=== PATIENT | male | born 1955 | race Caucasian/White ===

== ENCOUNTER 2019-05-16 13:05 | Emergency (ER) | payer OTHER ==
--- NOTE | 2019-05-16 13:39 | EDM.PDOC ---
ED HPI GENERAL MEDICAL PROBLEM - General Source of Information: Reports: Patient History Limitations: Reports: No Limitations - History of Present Illness Onset: Today Onset Time: 12:00 Duration: Constant Location: Reports: Neck Quality: Reports: Ache, Other (weakness) Severity: Moderate Improves with: Reports: None Worsens with: Reports: None Context: Reports: Other (fall) Associated Symptoms: Reports: Nausea/Vomiting Head Pain Score (Numeric/FACES): 4 <Naomi Biggs - Last Filed: 05/16/19 14:34> <Allison Newell - Last Filed: 05/16/19 15:26> - General Chief Complaint: Head Injury Stated Complaint: FELL AND HIT HEAD Time Seen by Provider: 05/16/19 13:34 - History of Present Illness INITIAL COMMENTS - FREE TEXT/NARRATIVE: Patient presents to the ED by private vehicle after falling on the ice and striking his head. The patient reports falling approximately 1/2 hour ago and recalling striking his head on the ground. He admits to pain in his neck. He reports nausea, dizziness and fogginess. He denies headache, light and sound sensitivity. He is on aspirin but denies use of other blood thinners. He does admit to a history of chronic neck pain but reports more weakness after this fall. He denies pain elsewhere. (Naomi Biggs) - Related Data Allergies Allergy/AdvReac Type Severity Reaction Status Date / Time Unable to Assess Allergy Unverified 05/16/19 13:15 Home Meds: Home Meds Acetaminophen/Caffeine [Excedrin Tension Headache Cplt] 2 each PO DAILY [History] Escitalopram Oxalate [Lexapro] 7 mg PO DAILY 05/16/19 [History] Pantoprazole Sodium [Protonix] 40 mg PO DAILY 05/16/19 [History] Past Medical History - Past Health History Medical/Surgical History: Denies Medical/Surgical History HEENT History: Reports: Impaired Vision Cardiovascular History: Reports: None Respiratory History: Reports: None Gastrointestinal History: Reports: None Genitourinary History: Reports: None Musculoskeletal History: Reports: Other (See Below) Other Musculoskeletal History: herniated disc in march Neurological History: Reports: None Psychiatric History: Reports: Depression Endocrine/Metabolic History: Reports: None Hematologic History: Reports: None Immunologic History: Reports: None Oncologic (Cancer) History: Reports: None Dermatologic History: Reports: None - Infectious Disease History Infectious Disease History: Reports: None - Past Surgical History Head Surgeries/Procedures: Reports: None <Naomi Biggs - Last Filed: 05/16/19 14:34> Social & Family History - Family History Family Medical History: Noncontributory - Tobacco Use Smoking Status *Q: Never Smoker Second Hand Smoke Exposure: No - Caffeine Use Caffeine Use: Reports: Coffee - Recreational Drug Use Recreational Drug Use: No <Naomi Biggs - Last Filed: 05/16/19 14:34> ED ROS GENERAL - Review of Systems Review Of Systems: See Below Constitutional: Denies: Fever, Chills HEENT: Denies: Vision Change Respiratory: Denies: Shortness of Breath, Cough Cardiovascular: Denies: Chest Pain, Palpitations Musculoskeletal: Reports: Neck Pain. Denies: Back Pain, Other (denies hip pain) Skin: Reports: Wound (to scalp) Neurological: Reports: Dizziness. Denies: Confusion, Headache, Numbness, Tingling Psychiatric: Reports: Depression <Naomi Biggs - Last Filed: 05/16/19 14:34> ED EXAM, HEAD INJURY - Physical Exam Exam: See Below Exam Limited By: No Limitations General Appearance: Alert, No Apparent Distress Head: Scalp Lacerations (1.3 cm laceration to posterior scalp), Scalp Tenderness , Active Bleeding. No: Scalp Swelling, Scalp Ecchymosis Nexus Criteria: Posterior, Midline Cervical Tenderness. 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 No: Motor Weakness, Sensory Deficit - [place] Coma Score Best Eye Response (Disha): (4) Open Spontaneously Best Verbal Response (Disha): (5) Oriented Best Motor Response ([place]): (6) Obeys Commands [place] Total: 15 <Naomi Biggs - Last Filed: 05/16/19 14:34> - Physical Exam Head: Normocephalic. No: Atraumatic Neurologic: Other (GCS15) Skin: Normal Color <Allison Newell - Last Filed: 05/16/19 15:26> Course <MaiagiuseppeNaomi - Last Filed: 05/16/19 14:34> <Allison Newell - Last Filed: 05/16/19 15:26> - Vital Signs Last Recorded V/S: Last Vital Signs Temp 97.6 F 05/16/19 13:16 Pulse 60 05/16/19 13:16 Resp 14 05/16/19 13:16 BP 174/93 H 05/16/19 13:16 Pulse Ox 100 05/16/19 13:16 - Radiology Interpretation Free Text/Narrative:: CT cervical spine reveals chronic multilevel disc disease and arthritis. No acute cervical fracture or dislocation. CT head reveals no sign of skull fracture, closed head injury, intracranial mass or hydrocephalus. No acute intracranial bleed. Chronic microvascular ischemic changes. (Naomi Biggs) - Re-Assessments/Exams Free Text/Narrative Re-Assessment/Exam: 05/16/19 13:52 C-collar in place prior to leaving for CT (Naomi Biggs) 1435 C collar removed I have examined the patient. I have discussed findings and treatment plan with the PA Student. I agree with the assessment and plan in the PA Students note 05/16/19 15:22 (Allison Newell) Departure - Departure Condition: Good - Discharge Information *PRESCRIPTION DRUG MONITORING PROGRAM REVIEWED*: Not Applicable *COPY OF PRESCRIPTION DRUG MONITORING REPORT IN PATIENT CONSTNAZA: Not Applicable <Naomi Biggs - Last Filed: 05/16/19 14:34> - Departure Time of Disposition: 14:40 <Allison Newell - Last Filed: 05/16/19 15:26> - Departure Disposition: Home, Self-Care 01 Clinical Impression: Scalp laceration Fall Qualifiers: Encounter type: initial encounter Qualified Code(s): W19.XXXA - Unspecified fall, initial encounter - Discharge Information Instructions: Concussion, Adult, [id number], Head Injury, Adult, [id number] Referrals: PCP,Unobtain [Primary Care Provider] - Forms: ED Department Discharge Additional Instructions: Tylenol every 4 hours as needed light activity, advance as tolerated follow up as needed Monitor for head injury / concussion type symptoms. follow up if symptoms worsening Sepsis Event Note - Evaluation Sepsis Screening Result: No Definite Risk - Focused Exam Date Exam was Performed: 05/16/19 Time Exam was Performed: 14:34 <Naomi Biggs - Last Filed: 05/16/19 14:34> - Focused Exam Date Exam was Performed: 05/16/19 Time Exam was Performed: 15:24 <Allison Newell - Last Filed: 05/16/19 15:26> - Focused Exam Vital Signs: Vital Signs Temp Pulse Resp BP Pulse Ox 05/16/19 13:16 97.6 F 60 14 174/93 H 100
--- NOTE | 2019-05-16 14:28 | CT ---
EXAMINATION: Cervical Spine wo Cont SEX: Male AGE: 64 years CLINICAL HISTORY: 64-year-old male injured when he slipped on ice and hit head/neck (feels weak). Scan technique: Volume acquisition of data emergency unenhanced CT scan of the cervical spine obtained with patient lying supine on the Siemens multislice scanner [place], [place]. All data archived in the PACS system for storage, reformatting axial/sagittal/coronal planes and study. Interpretation: 1. No sign of basal skull fracture. Symmetric clear pneumatization of the mastoid sinuses. 2. Normal bone mineral density for age and gender. No pathologic skeletal lesions. 3. Signs of chronic multilevel mid and lower cervical disc disease i.e. interspace narrowing and plate sclerosis and hypertrophic marginal/uncinate spur formation C4-5 C5-6 C6-7 levels. (Mild reactive sclerosis atlantoaxial joint). 4. No prevertebral soft tissue swelling, cervical fracture, spondylolisthesis or jump locked facet. 5. No cervical rib anomalies or first rib fracture. Lung apices clear. Conclusion: Chronic multilevel disc disease. Arthritis. No acute cervical fracture or dislocation.
--- NOTE | 2019-05-16 14:34 | CT ---
EXAMINATION: Head wo Cont SEX: Male AGE: 64 years CLINICAL HISTORY: 64-year-old male injured in fall i.e. slipped on ice hit head/neck (feels weak). "Multi level cervical disc disease and arthritis of the spine". Scan technique: Volume acquisition of data emergency unenhanced CT scan of the head and brain obtained with patient lying supine on the Siemens multi slice scanner [place], [place]. All data archived in the PACS system for storage, reformatting axial/sagittal/coronal planes and study (bone/brain windows). Interpretation: 1. Uniformly thick bony calvarium without sign of underlying or contrecoup brain contusion. 2. No skull fractures. Symmetric clear pneumatization of the paranasal and mastoid sinuses. 3. Symmetric cooper-white matter with some scattered microvascular ischemic change throughout both hemispheres. 4. No supratentorial or posterior fossa mass lesion. No hydrocephalus. 5. No sign of acute intracerebral/intraventricular/subarachnoid bleed. 6. Cerebellum and brainstem unremarkable. Conclusion: No sign of skull fracture, closed head injury, intracranial mass or hydrocephalus. No acute intracranial bleed. Chronic microvascular ischemic changes.
== END 2019-05-16 14:46 | disposition home or self-care (01) ==
LOC: DL.ED 13:05
DX: S01.01XA Laceration without foreign body of scalp, initial encounter (principal); F32.9 Major depressive disorder, single episode, unspecified; Z79.899 Other long term (current) drug therapy; W19.XXXA Unspecified fall, initial encounter
CPT/HCPCS: 70450; 72125; 99283-25

== ENCOUNTER 2020-04-03 21:02 | Emergency (ER) | payer MEDICARE, OTHER ==
--- NOTE | 2020-04-03 21:44 | EDM.PDOC ---
ED HPI GENERAL MEDICAL PROBLEM - General Chief Complaint: Cardiovascular Problem Stated Complaint: BLOOD PRESSURE HIGH Time Seen by Provider: 04/03/20 21:25 Source of Information: Reports: Patient History Limitations: Reports: No Limitations - History of Present Illness INITIAL COMMENTS - FREE TEXT/NARRATIVE: This 65 yo male patient reports to the ED due to an elevated blood pressure this evening. The patient reports he has noticed increased blood pressures, flushing of his face and cool hands since January. The patient also reports his anxiety medications were changed in January. The patient reports he has been taking his blood pressures since January and noticed increased blood pressures. The patient reports he was recently given a prescription for Lorazepam for his anxiety. The patient reports he took a dose of Lorazepam 30 minutes prior to his arrival in the ED. 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) - Related Data Allergies Allergy/AdvReac Type Severity Reaction Status Date / Time Unable to Assess Allergy Unverified 05/16/19 13:15 Home Meds: Home Meds Acetaminophen/Caffeine [Excedrin Tension Headache Cplt] 2 each PO DAILY 05/16/19 [History] Pantoprazole Sodium [Protonix] 40 mg PO DAILY 05/16/19 [History] Citalopram Hydrobromide [Celexa] 10 mg PO DAILY 04/03/20 [History] LORazepam [Lorazepam] 0.5 mg PO DAILY PRN 04/03/20 [History] Past Medical History - Past Health History Medical/Surgical History: Denies Medical/Surgical History HEENT History: Reports: Impaired Vision Cardiovascular History: Reports: None Respiratory History: Reports: None Gastrointestinal History: Reports: None Genitourinary History: Reports: None Musculoskeletal History: Reports: Other (See Below) Other Musculoskeletal History: herniated disc in march Neurological History: Reports: None Psychiatric History: Reports: Anxiety, Depression Endocrine/Metabolic History: Reports: None Hematologic History: Reports: None Immunologic History: Reports: None Oncologic (Cancer) History: Reports: None Dermatologic History: Reports: None - Infectious Disease History Infectious Disease History: Reports: None - Past Surgical History Head Surgeries/Procedures: Reports: None Social & Family History - Family History Family Medical History: No Pertinent Family History - Tobacco Use Tobacco Use Status *Q: Never Tobacco User Second Hand Smoke Exposure: No - Caffeine Use Caffeine Use: Reports: Coffee - Recreational Drug Use Recreational Drug Use: No ED ROS GENERAL - Review of Systems Review Of Systems: Comprehensive ROS is negative, except as noted in HPI. ED EXAM, GENERAL - Physical Exam Exam: See Below Exam Limited By: No Limitations General Appearance: Alert, WD/WN, Anxious, Mild Distress, Thin Eye Exam: Bilateral Eye: EOMI, Normal Inspection, PERRL Ears: Normal External Exam, Normal Canal, Hearing Grossly Normal, Normal TMs Nose: Normal Inspection, Normal Mucosa, No Blood Throat/Mouth: Normal Inspection, Normal Lips, Normal Teeth, Normal Gums, Normal Oropharynx, Normal Voice, No Airway Compromise Head: Atraumatic, Normocephalic Neck: Normal Inspection, Supple, Non-Tender, Full Range of Motion Respiratory/Chest: No Respiratory Distress, Lungs Clear, Normal Breath Sounds, No Accessory Muscle Use, Chest Non-Tender Cardiovascular: Normal Peripheral Pulses, Regular Rate, Rhythm, No Edema, No Gallop, No JVD, No Murmur, No Rub GI/Abdominal: Normal Bowel Sounds, Soft, Non-Tender, No Organomegaly, No Distention, No Abnormal Bruit, No Mass (Male) Exam: Deferred Rectal (Males) Exam: Deferred Back Exam: Normal Inspection, Full Range of Motion, NT Extremities: Normal Inspection, Normal Range of Motion, Non-Tender, Normal Capillary Refill, No Pedal Edema Neurological: Alert, Oriented, CN II-XII Intact, Normal Cognition, Normal Gait, Normal Reflexes, No Motor/Sensory Deficits Psychiatric: Anxious Skin Exam: Warm, Dry, Intact, Normal Color, No Rash Lymphatic: No Adenopathy Course - Vital Signs Last Recorded V/S: Last Vital Signs Temp 37.2 C 04/03/20 21:05 Pulse 94 04/03/20 21:05 Resp 18 04/03/20 21:05 BP 187/94 H 04/03/20 21:15 Pulse Ox 100 04/03/20 21:05 - Orders/Labs/Meds Orders: Active Orders 24 hr Category Date Time Status EKG Documentation Completion [RC] STAT Care 04/03/20 21:16 Ordered Labs: Laboratory Tests 04/03/20 04/03/20 Range/Units 21:20 21:20 WBC 8.9 (5.0-10.0) 10^3/uL RBC 4.17 L (4.6-6.2) 10^6/uL Hgb 12.6 L (14.0-18.0) g/dL Hct 37.4 L (40.0-54.0) % MCV 89.7 (80-100) fL MCH 30.2 (27.0-34.0) pg MCHC 33.7 (33.0-35.0) g/dL Plt Count 213 (150-450) 10^3/uL Neut % (Auto) 83.2 H (42.2-75.2) % Lymph % (Auto) 9.7 L (20.5-50.1) % [place] % (Auto) 6.9 (2-8) % Eos % (Auto) 0.0 L (1.0-3.0) % Baso % (Auto) 0.2 (0.0-1.0) % Sodium 138 (136-145) mmol/L Potassium 3.8 (3.5-5.1) mmol/L Chloride 103 (98-107) mmol/L Carbon Dioxide 28 (21-32) mmol/L Anion Gap 10.8 (7-13) mEq/L BUN 18 (7-18) mg/dL Creatinine 0.75 (0.70-1.30) mg/dL Est Cr Clr Drug Dosing 90.75 mL/min Estimated GFR (MDRD) > 60 BUN/Creatinine Ratio 24.0 (No establ ref range) Glucose 111 H (74-99) mg/dL Calcium 9.0 (8.5-10.1) mg/dL Total Bilirubin 0.6 (0.2-1.0) mg/dL AST 23 (15-37) U/L ALT 29 (16-63) U/L Alkaline Phosphatase 69 (46-116) U/L Troponin I < 0.017 (0.000-0.056) ng/mL Total Protein 7.1 (6.4-8.2) g/dL Albumin 4.1 (3.4-5.0) g/dL Globulin 3.0 Albumin/Globulin Ratio 1.4 Departure - Departure Time of Disposition: 21:56 Disposition: Home, Self-Care 01 Condition: Fair Clinical Impression: Anxiety about health Instructions: Hypertension, Adult, [id number] Forms: ED Department Discharge Care Plan Goals: The patient was advised of the examination, lab and EKG results during the visit. The patient was encouraged to continue to monitor his symptoms. The patient was encouraged to take his blood pressure 3 times per day and document the results. The patient should contact his primary care facility for continued evaluation and further management. If the patient has any additional symptoms or concerns, the patient should either return to the emergency department or visit his primary care facility. Sepsis Event Note (ED) - Evaluation Sepsis Screening Result: No Definite Risk - Focused Exam Vital Signs: Vital Signs Temp Pulse Resp BP Pulse Ox 04/03/20 21:15 187/94 H 04/03/20 21:05 37.2 C 94 18 203/101 H 100 - My Orders Last 24 Hours: My Active Orders 04/03/20 21:16 EKG Documentation Completion [RC] STAT - Assessment/Plan Last 24 Hours: My Active Orders 04/03/20 21:16 EKG Documentation Completion [RC] STAT
[2020-04-03 21:47] LABS: ANION GAP 10.8 mEq/L (7-13); CHLORIDE,CL 103 mmol/L (98-107); SODIUM,NA 138 mmol/L (136-145)
== END 2020-04-03 22:02 | disposition home or self-care (01) ==
LOC: DL.ED 21:02
DX: F41.9 Anxiety disorder, unspecified (principal); Z79.899 Other long term (current) drug therapy
CPT/HCPCS: 36415; 80053; 84484; 85025; 93005; 99283; 99283-25

== ENCOUNTER 2020-08-02 09:02 | Emergency (ER) | payer MEDICARE, OTHER ==
--- NOTE | 2020-08-02 09:09 | EDM.PDOC ---
ED HPI GENERAL MEDICAL PROBLEM - General Chief Complaint: Genitourinary Problem Stated Complaint: UTI [id number] Time Seen by Provider: 08/02/20 09:06 Source of Information: Reports: Patient, Old Records, RN, RN Notes Reviewed History Limitations: Reports: No Limitations - History of Present Illness INITIAL COMMENTS - FREE TEXT/NARRATIVE: Pt presents to ER with c/o "UTI". Onset 1-2 days ago. Pt reports pain/burning with urination. Admits to nausea, chills, and low back pain. Denies fever, or flank pain. Onset: Gradual Duration: Constant Location: Reports: Other (Urinary) Severity: Moderate Improves with: Reports: None Associated Symptoms: Reports: No Other Symptoms headache Pain Score (Numeric/FACES): 5 - Related Data Allergies Allergy/AdvReac Type Severity Reaction Status Date / Time anti-anxiety medications Allergy Other Uncoded 08/02/20 09:24 Home Meds: Home Meds Acetaminophen/Caffeine [Excedrin Tension Headache Cplt] 2 each PO DAILY 05/16/19 [History] Pantoprazole Sodium [Protonix] 40 mg PO DAILY 05/16/19 [History] LORazepam [Lorazepam] 0.5 mg PO DAILY PRN 04/03/20 [History] Escitalopram Oxalate 5 mg PO DAILY 08/02/20 [History] Metoprolol Succinate 25 mg PO DAILY 08/02/20 [History] Past Medical History - Past Health History Medical/Surgical History: Denies Medical/Surgical History HEENT History: Reports: Impaired Vision Cardiovascular History: Reports: None Respiratory History: Reports: None Gastrointestinal History: Reports: None Genitourinary History: Reports: None Musculoskeletal History: Reports: Other (See Below) Other Musculoskeletal History: herniated disc in march Neurological History: Reports: None Psychiatric History: Reports: Anxiety, Depression Endocrine/Metabolic History: Reports: None Hematologic History: Reports: None Immunologic History: Reports: None Oncologic (Cancer) History: Reports: None Dermatologic History: Reports: None - Infectious Disease History Infectious Disease History: Reports: None - Past Surgical History Head Surgeries/Procedures: Reports: None Social & Family History - Family History Family Medical History: No Pertinent Family History - Caffeine Use Caffeine Use: Reports: Coffee ED ROS GENERAL - Review of Systems Review Of Systems: Comprehensive ROS is negative, except as noted in HPI. ED EXAM, RENAL/ - Physical Exam Exam: See Below Exam Limited By: No Limitations General Appearance: Alert, WD/WN, No Apparent Distress Throat/Mouth: Normal Voice, No Airway Compromise Head: Atraumatic, Normocephalic Respiratory/Chest: No Respiratory Distress Cardiovascular: Regular Rate, Rhythm GI/Abdominal: Normal Bowel Sounds, Soft, Non-Tender, No Organomegaly, No Distention, No Abnormal Bruit, No Mass (Male) Exam: Deferred Rectal (Males) Exam: Deferred Back Exam: Normal Inspection, Full Range of Motion. No: CVA Tenderness (L), CVA Tenderness (R), Vertebral Tenderness Neurological: Alert, Oriented, No Motor/Sensory Deficits Psychiatric: Normal Mood Skin Exam: Warm, Dry, Intact, Normal Color, No Rash Course - Vital Signs Last Recorded V/S: Last Vital Signs Temp 98.9 F 08/02/20 09:16 Pulse 80 08/02/20 09:16 Resp 16 08/02/20 09:16 BP 146/80 H 08/02/20 09:16 Pulse Ox 100 08/02/20 09:16 - Orders/Labs/Meds Orders: Active Orders 24 hr Category Date Time Status CULTURE URINE [RM] Stat Lab 08/02/20 09:05 Received UA W/MICROSCOPIC [URIN] Stat Lab 08/02/20 09:05 Results Ondansetron [Zofran ODT] Med 08/02/20 09:26 Once 4 mg PO ONETIME ONE cefTRIAXone 1 GM,Lidocaine 1% 2.1 ML Med 08/02/20 09:27 Ordered cefTRIAXone [Rocephin] 1 gm Lidocaine 1% [Xylocaine-MPF 1%] 2.1 ml IM ONETIME Medication Orders Ceftriaxone Sodium 1 gm/ (Lidocaine HCl 2.1 ml) 0 gm IM ONETIME ONE Stop: 08/02/20 09:28 Ondansetron HCl (Ondansetron 4 Mg Tab.Dis) 4 mg PO ONETIME ONE Stop: 08/02/20 09:27 Labs: Laboratory Tests 08/02/20 Range/Units 09:05 Urine Color Dark yellow (YELLOW) Urine Appearance Cloudy (CLEAR) Urine pH 7.0 (5.0-9.0) Ur Specific [place] 1.020 (1.005-1.030) Urine Protein 100 H (NEGATIVE) Urine Glucose (UA) Negative (NEGATIVE) Urine Ketones Trace H (NEGATIVE) Urine Occult Blood Trace-intact H (NEGATIVE) Urine Nitrite Positive H (NEGATIVE) Urine Bilirubin Negative (NEGATIVE) Urine Urobilinogen 0.2 (0.2-1.0) mg/dL Ur Leukocyte Esterase Large H (NEGATIVE) Meds: Medications Generic Name Dose Route Start Last Admin Trade Name Srinivasq PRN Reason Stop Dose Admin Ceftriaxone Sodium 1 gm/ 0 gm 08/02/20 09:27 Lidocaine HCl 2.1 ml IM 08/02/20 09:28 ONETIME ONE Ondansetron HCl 4 mg 08/02/20 09:26 Ondansetron 4 Mg Tab.Dis PO 08/02/20 09:27 ONETIME ONE Departure - Departure Time of Disposition: 09:29 Disposition: Home, Self-Care 01 Condition: Good Clinical Impression: UTI, Urinary tract infectious disease - Discharge Information *PRESCRIPTION DRUG MONITORING PROGRAM REVIEWED*: Not Applicable *COPY OF PRESCRIPTION DRUG MONITORING REPORT IN PATIENT CONSTANZA: Not Applicable Instructions: Urinary Tract Infection, Adult Forms: ED Department Discharge Additional Instructions: Rx: Cipro 500mg Rx: Zofran 4mg Drink plenty of water. Follow up in clinic in 7 to 10 days for urine recheck. Sepsis Event Note (ED) - Focused Exam Vital Signs: Vital Signs Temp Pulse Resp BP Pulse Ox 08/02/20 09:16 98.9 F 80 16 146/80 H 100 - My Orders Last 24 Hours: My Active Orders 08/02/20 09:05 CULTURE URINE [RM] Stat UA W/MICROSCOPIC [URIN] Stat 08/02/20 09:26 Ondansetron [Zofran ODT] 4 mg PO ONETIME ONE 08/02/20 09:27 cefTRIAXone 1 GM,Lidocaine 1% 2.1 ML cefTRIAXone [Rocephin] 1 gm Lidocaine 1% [Xylocaine-MPF 1%] 2.1 ml IM ONETIME - Assessment/Plan Last 24 Hours: My Active Orders 08/02/20 09:05 CULTURE URINE [RM] Stat UA W/MICROSCOPIC [URIN] Stat 08/02/20 09:26 Ondansetron [Zofran ODT] 4 mg PO ONETIME ONE 08/02/20 09:27 cefTRIAXone 1 GM,Lidocaine 1% 2.1 ML cefTRIAXone [Rocephin] 1 gm Lidocaine 1% [Xylocaine-MPF 1%] 2.1 ml IM ONETIME
[2020-08-02] MEDS ORDERED: Ondansetron 4 MG Tab.DIS PO ONE (09:26)
[2020-08-02] MEDS ORDERED: cefTRIAXone 1 GM, Lidocaine 1% 2.1 ML IM ONE ×2 (09:27)
== END 2020-08-02 09:47 | disposition home or self-care (01) ==
LOC: DL.ED 09:02
DX: N39.0 Urinary tract infection, site not specified (principal); Z88.8 Allergy status to other drugs, medicaments and biological substances; Z79.899 Other long term (current) drug therapy
CPT/HCPCS: 81001; 87086; 87088; 87186; 96372; 99283; A9270-GY; J0696

== ENCOUNTER 2020-09-13 19:58 | Emergency (ER) | payer MEDICARE, OTHER ==
--- NOTE | 2020-09-13 23:31 | EDM.PDOC ---
ED HPI GENERAL MEDICAL PROBLEM - General Chief Complaint: Bite:Animal, Insect Stated Complaint: LEFT HAND, KNUCKLES 1 & 2. BIT BY CATS Time Seen by Provider: 09/13/20 23:20 Source of Information: Reports: Patient, RN History Limitations: Reports: No Limitations - History of Present Illness INITIAL COMMENTS - FREE TEXT/NARRATIVE: 65 year old male who presents to the ER one hour after being bitten by his cat twice. He states he took the cat away from a mint plant he was destroying and the cat bite him twice. No bleeding noted. Cat is uptodate on vaccination. Patient uptodate on tetanus. Patient reports a similare case of a cat bit about year ago and was treated for cellulitis. He denies any symptoms at this time. Left Neck Pain Score (Numeric/FACES): 4 - Related Data Allergies Allergy/AdvReac Type Severity Reaction Status Date / Time anti-anxiety medications Allergy Other Uncoded 09/13/20 22:04 Home Meds: Home Meds Acetaminophen/Caffeine [Excedrin Tension Headache Cplt] 2 each PO DAILY 05/16/19 [History] Pantoprazole Sodium [Protonix] 40 mg PO DAILY 05/16/19 [History] LORazepam [Lorazepam] 0.5 mg PO DAILY PRN 04/03/20 [History] Escitalopram Oxalate 5 mg PO DAILY 08/02/20 [History] Metoprolol Succinate 25 mg PO DAILY 08/02/20 [History] Past Medical History - Past Health History Medical/Surgical History: Denies Medical/Surgical History HEENT History: Reports: Impaired Vision Cardiovascular History: Reports: None Respiratory History: Reports: None Gastrointestinal History: Reports: None Genitourinary History: Reports: None Musculoskeletal History: Reports: Other (See Below) Other Musculoskeletal History: herniated disc in march Neurological History: Reports: None Psychiatric History: Reports: Anxiety, Depression Endocrine/Metabolic History: Reports: None Hematologic History: Reports: None Immunologic History: Reports: None Oncologic (Cancer) History: Reports: None Dermatologic History: Reports: None - Infectious Disease History Infectious Disease History: Reports: None - Past Surgical History Head Surgeries/Procedures: Reports: None Social & Family History - Family History Family Medical History: No Pertinent Family History - Tobacco Use Tobacco Use Status *Q: Never Tobacco User - Caffeine Use Caffeine Use: Reports: None - Recreational Drug Use Recreational Drug Use: No ED ROS GENERAL - Review of Systems Review Of Systems: Comprehensive ROS is negative, except as noted in HPI. ED EXAM, ANIMAL BITE - Physical Exam Exam: See Below Exam Limited By: No Limitations General Appearance: Alert, No Apparent Distress Respiratory/Chest: No Respiratory Distress, Lungs Clear, Normal Breath Sounds, No Accessory Muscle Use, Chest Non-Tender Cardiovascular: Normal Peripheral Pulses, Regular Rate, Rhythm, No Edema, No Gallop, No JVD, No Murmur, No Rub Peripheral Pulses: 3+: Radial (L) Extremities: Normal Capillary Refill, Other (tow puncture henrandez noted ontop of his left forarm with no bleeding.) Neurological: Alert, Oriented Psychiatric: Normal Affect, Normal Mood Skin Exam: Normal Color Lymphatic: No Adenopathy Course - Vital Signs Last Recorded V/S: Last Vital Signs Temp 97.6 F 09/13/20 22:02 Pulse 60 09/13/20 22:02 Resp 16 09/13/20 22:02 BP 189/94 H 09/13/20 22:02 Pulse Ox 100 09/13/20 22:02 - Re-Assessments/Exams Free Text/Narrative Re-Assessment/Exam: Reviewed exam findings with patient. Initiated on Augmentin twice daily x5 days. Patient to keep bite hernandez area clean and dry. Signs or symptoms of infection reviewed with patient. Encouraged to follow-up with PCP in the clinic. Departure - Departure Time of Disposition: 23:31 Disposition: Home, Self-Care 01 Condition: Good Clinical Impression: Cat bite of hand Qualifiers: Encounter type: initial encounter Laterality: left Qualified Code(s): S61.452A - Open bite of left hand, initial encounter - Discharge Information Instructions: Animal Bite, Adult, [id number] Forms: ED Department Discharge Additional Instructions: Encouraged patient to keep bite area clean. Take antibiotics as prescribed and follow up with PCP. OTC analgesics recommended for relief. Sepsis Event Note (ED) - Evaluation Sepsis Screening Result: No Definite Risk
== END 2020-09-13 23:47 | disposition home or self-care (01) ==
LOC: DL.ED 19:58
DX: S61.452A Open bite of left hand, initial encounter (principal); W55.01XA Bitten by cat, initial encounter
CPT/HCPCS: 99283

== ENCOUNTER 2020-12-15 05:46 | Day surgery (SDC) | payer MEDICARE, OTHER ==
[~2020-12-15 05:46] MED LIST: Midazolam 1 MG/ML 2 ML SDV ONE; fentaNYL 100 MCG/2 ML SDV ONE
[2020-12-15] MEDS ORDERED: Midazolam 1 MG/ML 2 ML SDV IV ONE ×3 (05:47→07:16)
[2020-12-15] MEDS ORDERED: fentaNYL 100 MCG/2 ML SDV IV ONE ×3 (05:47→07:15)
[2020-12-15] MEDS ORDERED: Dextrose 5%-0.45% NaCl 1,000 ML IV SCH (06:05)
--- NOTE | 2020-12-15 08:09 | OR ---
DATE: 12/15/2020 PROCEDURES: Esophagogastroduodenoscopy and multiple pinch biopsies. INSTRUMENT USED: [id number]-HQ190 Olympus video panendoscope. PREMEDICATIONS: No oral or topical anesthesia used. Fentanyl 100 mcg intravenous, Versed 2 mg intravenous, nasal O2 cannula. The procedure was done under pulse oximetry, BP recording, and residential monitor. INDICATION: The patient with unexplained iron-deficiency anemia. Esophagogastroduodenoscopy is performed for detection of any active erosive lesions, Dhaliwal esophagus and/or malignancy also under consideration, H pylori status to be determined, small bowel biopsies to be obtained for celiac disease if indicated, endoscopic hemostasis therapy if needed. PROCEDURE IN DETAIL: The scope was passed with ease. Adequate visualization of the esophagus was made from proximal to distal areas. No upper esophageal lesions identified. No uphill or downhill esophageal varices noted. No evidence of erosive esophagitis by Hull criteria. No esophageal polyp or tumor mass identified. Z-line was seen at around 40 cm distal to the oral verge. No proximal gastric varices noted. Gastric fundus examination by retroflexion showed diminutive benign-appearing polyp. No gastric ulcer, malignant mass, or vascular ectasia identified. Duodenal bulb showed no ulcer. Visualized second part of the duodenum was unremarkable. Multiple pinch biopsies, 4 in number, were taken from different areas of the second part of the duodenum and tissues were also obtained from the duodenal bulb at 9 and 12 o'clock positions and sent for any histopathologic evidence of celiac disease. Multiple pinch biopsies were also obtained from the gastric antrum and proximal body and sent for PyloriTek test for H pylori and histopathology. No bleeding was noted from any of the visualized areas at the completion of examination. Photographs were taken of the duodenal bulb, gastric antrum, fundus, and distal esophagus. IMPRESSION: Diminutive gastric fundus polyp. The patient tolerated the procedure well. [facility] /[id number]
== END 2020-12-15 09:33 | disposition home or self-care (01) ==
LOC: DL.ENDO 05:46
PROVIDERS: ATTEND Internal Medicine Gastroenterology
DX: K31.7 Polyp of stomach and duodenum (principal); D50.9 Iron deficiency anemia, unspecified; Z01.812 Encounter for preprocedural laboratory examination; Z20.822 Contact with and (suspected) exposure to COVID-19
CPT/HCPCS: 87077; 88305; J2250; J3010; J7042; U0002

== ENCOUNTER 2020-12-25 06:24 | Day surgery (SDC) | payer MEDICARE, OTHER ==
[~2020-12-25 06:24] MED LIST changes: +Sodium Chloride 0.9% 10 ML Syringe FLUSH PRN
[2020-12-25] MEDS ORDERED: fentaNYL 100 MCG/2 ML SDV IV ONE ×6 (06:25→07:34)
[2020-12-25] MEDS ORDERED: Midazolam 1 MG/ML 2 ML SDV IV ONE ×7 (06:25→07:22)
[2020-12-25] MEDS: Dextrose 5%-0.45% NaCl 1,000 ML IV SCH ×2 (06:45→08:15)
[2020-12-25] MEDS ORDERED: Sodium Chloride 0.9% 1,000 ML IV ONE (07:30)
--- NOTE | 2020-12-25 15:59 | OR ---
DATE: 12/25/2020 PROCEDURE: Total colonoscopy. INSTRUMENT USED: [id number]-H190DL Olympus video colonoscope. PREMEDICATIONS: Fentanyl 150 mcg intravenous, Versed 4 mg intravenous. Nasal O2 cannula. The procedure was done under pulse oximetry, BP recording, and alarm security or surveillance monitor. INDICATIONS: The patient with iron-deficiency anemia, unexplained and previous colonic polyps. Colonoscopic examination is done for detection of any polypoid lesions and removal, endoscopic hemostasis therapy if needed. DESCRIPTION OF PROCEDURE: Initial rectal exam was unremarkable. Rigid anoscopy was normal. The colonoscope was passed with relative ease up to the ileocecal area. Photographs were taken of the normal-appearing cecum, identified by landmarks of appendiceal orifice and double-bulged ileocecal folds. No bleeding was noted from any of the visualized areas at the commencement of the examination. The bowel preparation was found to be adequate, Dodge scale 2 in the right and left colon, 3 in transverse colon, total score 7. The colon was found to be tortuous and redundant. No stricture. No vascular ectasia. No large isolated ulcerations seen. No evidence of diffuse inflammatory bowel disease in the form of friability, contact bleeding, or ulcerations. No polyp or tumor mass identified. Probing the proximal sides of folds and flexures using adequate distention and clearing up the stool material, withdrawal of the scope was made, cecum to rectum time over 6 minutes. No bleeding was noted from any of the visualized areas at the completion of examination. IMPRESSION: Normal study. The patient tolerated the procedure well. [facility] /[id number]
== END 2020-12-25 09:30 | disposition home or self-care (01) ==
LOC: DL.ENDO 06:24
PROVIDERS: ATTEND Internal Medicine Gastroenterology
DX: D50.9 Iron deficiency anemia, unspecified (principal); Z86.010 Personal history of colon polyps; I10 Essential (primary) hypertension; K21.9 Gastro-esophageal reflux disease without esophagitis; Z98.890 Other specified postprocedural states; G43.909 Migraine, unspecified, not intractable, without status migrainosus; Z88.9 Allergy status to unspecified drugs, medicaments and biological substances
CPT/HCPCS: 45378; J2250; J3010; J7030; J7042

== ENCOUNTER 2022-07-27 17:04 | Emergency (ER) | payer MEDICARE, OTHER ==
[2022-07-27] MEDS ORDERED: Sodium Chloride 0.9% 10 ML Syringe FLUSH PRN (17:21)
[2022-07-27] MEDS ORDERED: hydrALAZINE 20 MG/ML SDV IVPUSH ONE (17:22)
[2022-07-27 17:34] LABS: BASOPHILS PERCENT AUTO 0.4 % (0.0-1.0); HEMOGLOBIN 12.1 g/dL (14.0-18.0); LYMPHOCYTES PERCENT AUTO 21.2 % (20.5-50.1); MEAN CORPUSCULAR HEMOGLOBIN 29.4 pg (27.0-34.0); MEAN CORPUSCULAR HGB CONC 32.7 g/dL (33.0-35.0); MEAN CORPUSCULAR VOLUME 89.8 fL (80-100); MONOCYTES PERCENT AUTO 8.1 % (2-8); NEUTROPHILS PERCENT AUTO 69.3 % (42.2-75.2); PLATELET COUNT,PLT 222 10^3/uL (150-450); RED BLOOD CELL COUNT 4.12 10^6/uL (4.6-6.2); WHITE BLOOD CELL COUNT,WBC 4.8 10^3/uL (5.0-10.0)
[2022-07-27 17:37] LABS: APPEARANCE,URINE CLEAR (CLEAR); BILIRUBIN,URINE NEGATIVE (NEGATIVE); COLOR,URINE YELLOW (YELLOW); GLUCOSE,URINE NEGATIVE (NEGATIVE); KETONES,URINE NEGATIVE (NEGATIVE); LEUKOCYTE ESTERASE,URINE NEGATIVE (NEGATIVE); NITRITE,URINE NEGATIVE (NEGATIVE); OCCULT BLOOD,URINE NEGATIVE (NEGATIVE); PROTEIN,URINE NEGATIVE (NEGATIVE); UROBILINOGEN,URINE 0.2 mg/dL (0.2-1.0)
[2022-07-27 18:02] LABS: A/G RATIO 1.4; ALANINE AMINOTRANSFERASE,ALT 21 U/L (16-63); ALKALINE PHOSPHATASE 80 U/L (46-116); ANION GAP 8.8 mEq/L (7-13); ASPARTATE AMNIOTRANSFERASE,AST 25 U/L (15-37); BILIRUBIN TOTAL 0.6 mg/dL (0.2-1.0); BLOOD UREA NITROGEN,BUN 14 mg/dL (7-18); BUN/CREATININE RATIO 16.9 (No establ ref range); CALCIUM 8.8 mg/dL (8.5-10.1); CARBON DIOXIDE,CO2 30 mmol/L (21-32); CHLORIDE,CL 105 mmol/L (98-107); CREATININE 0.83 mg/dL (0.70-1.30); EST CRCL DRUG DOSING (CG) 81.21 mL/min; GLUCOSE RANDOM 92 mg/dL (70-99); MAGNESIUM 2.4 mg/dL (1.8-2.4); POTASSIUM,K 3.8 mmol/L (3.5-5.1); PROTEIN TOTAL,TP 6.9 g/dL (6.4-8.2); SODIUM,NA 140 mmol/L (136-145); TSH ULTRASENSITIVE 2.91 uIU/mL (0.36-3.74)
[2022-07-27 18:10] LABS: ESTIMATED GFR 95 mL/min (>=60)
== END 2022-07-27 18:42 | disposition home or self-care (01) ==
LOC: DL.ED 17:04
DX: I10 Essential (primary) hypertension (principal); K21.9 Gastro-esophageal reflux disease without esophagitis; M19.90 Unspecified osteoarthritis, unspecified site; Z88.1 Allergy status to other antibiotic agents; Z88.5 Allergy status to narcotic agent; Z88.8 Allergy status to other drugs, medicaments and biological substances; Z79.899 Other long term (current) drug therapy; Z79.82 Long term (current) use of aspirin
CPT/HCPCS: 36415; 71045; 80053; 81003; 83735; 84443; 84484; 85025; 93005; 99284

== ENCOUNTER 2024-06-19 16:42 | Emergency (ER) | payer MEDICARE, OTHER ==
[2024-06-19 17:24] LABS: BASOPHILS PERCENT AUTO 0.4 % (0.0-1.0); EOSINOPHILS PERCENT AUTO 0.7 % (1.0-3.0); HEMATOCRIT 40.4 % (40.0-54.0); HEMOGLOBIN 13.3 g/dL (14.0-18.0); LYMPHOCYTES PERCENT AUTO 14.7 % (20.5-50.1); MEAN CORPUSCULAR HGB CONC 32.9 g/dL (33.0-35.0); MONOCYTES PERCENT AUTO 5.7 % (2-8); NEUTROPHILS PERCENT AUTO 78.5 % (42.2-75.2); PLATELET COUNT,PLT 212 10^3/uL (150-450); RED BLOOD CELL COUNT 4.44 10^6/uL (4.6-6.2); WHITE BLOOD CELL COUNT,WBC 7.7 10^3/uL (5.0-10.0)
[2024-06-19 17:26] LABS: APPEARANCE,URINE CLEAR (CLEAR); BILIRUBIN,URINE NEGATIVE (NEGATIVE); COLOR,URINE YELLOW (YELLOW); GLUCOSE,URINE NEGATIVE (NEGATIVE); KETONES,URINE NEGATIVE (NEGATIVE); LEUKOCYTE ESTERASE,URINE NEGATIVE (NEGATIVE); NITRITE,URINE NEGATIVE (NEGATIVE); OCCULT BLOOD,URINE TRACE-INTACT (NEGATIVE); PROTEIN,URINE NEGATIVE (NEGATIVE); UROBILINOGEN,URINE 0.2 mg/dL (0.2-1.0)
[2024-06-19 17:47] LABS: ANION GAP 13.3 mEq/L (7-13); CALCIUM 9.7 mg/dL (8.5-10.1); CREATININE 0.96 mg/dL (0.70-1.30); EST CRCL DRUG DOSING (CG) 65.69 mL/min; POTASSIUM,K 5.3 mmol/L (3.5-5.1)
[2024-06-19 17:47] LABS: AMORPHOUS SEDIMENT,URINE RARE /HPF (NOT SEEN); BACTERIA,URINE RARE /HPF (0-FEW/HPF); EPITHELIAL CELLS,URINE RARE /HPF (NOT SEEN); MUCUS,URINE RARE /LPF (NOT SEEN); RBC,URINE 0-5 /HPF (0-5); WBC,URINE 0-5 /HPF (0-5/HPF)
== END 2024-06-19 17:59 | disposition home or self-care (01) ==
LOC: DL.ED 16:42
DX: I10 Essential (primary) hypertension (principal); M19.90 Unspecified osteoarthritis, unspecified site; Z88.1 Allergy status to other antibiotic agents; Z88.8 Allergy status to other drugs, medicaments and biological substances; Z79.82 Long term (current) use of aspirin; Z79.899 Other long term (current) drug therapy
CPT/HCPCS: 36415; 80048; 81001; 84484; 85025; 93005; 93010; 99283